=== PATIENT | female | born 1990 | race Two or more races ===

== ENCOUNTER 2018-10-22 17:12 | Emergency (ER) | payer SELFPAY ==
[2018-10-22] MEDS ORDERED: Ondansetron 4 MG Tab.DIS PO ONE (18:29)
[2018-10-22] MEDS ORDERED: Loperamide 2 MG Cap PO ONE (18:30)
--- NOTE | 2018-10-22 18:35 | EDM.PDOC ---
ED HPI GENERAL MEDICAL PROBLEM - General Chief Complaint: Abdominal Pain Stated Complaint: ABD PAIN DIARREHA NAUSEA Time Seen by Provider: 10/22/18 18:23 Source of Information: Reports: Patient, Family, RN Notes Reviewed History Limitations: Reports: No Limitations - History of Present Illness INITIAL COMMENTS - FREE TEXT/NARRATIVE: 28-year-old female presents emergency department day complaint of diarrhea and nausea, she states it started early this morning around 2 AM she's had 6 loose bowel movements today denies any fevers no shortness of breath chest pain no new medications no sick contacts no suspicious food Upper Abdomen Pain Score (Numeric/FACES): 8 - Related Data Allergies Allergy/AdvReac Type Severity Reaction Status Date / Time cinnamon Allergy Rash Verified 10/22/18 17:36 shrimp Allergy Rash Verified 10/22/18 17:36 lobster Allergy Rash Uncoded 10/22/18 17:36 Home Meds: Home Meds NK [No Known Home Meds] 10/22/18 [History] Past Medical History - Past Health History Medical/Surgical History: Denies Medical/Surgical History - Past Surgical History GI Surgical History: Reports: Appendectomy Social & Family History - Tobacco Use Smoking Status *Q: Never Smoker - Caffeine Use Caffeine Use: Reports: Coffee - Recreational Drug Use Recreational Drug Use: Yes Recreational Drug Type: Reports: Marijuana/Hashish ED ROS GENERAL - Review of Systems Review Of Systems: See Below Constitutional: Denies: Fever, Chills Respiratory: Reports: No Symptoms Cardiovascular: Reports: No Symptoms GI/Abdominal: Reports: Abdominal Pain, Diarrhea, Nausea, Vomiting : Reports: No Symptoms ED EXAM, GI/ABD - Physical Exam Exam: See Below Exam Limited By: No Limitations General Appearance: Alert, WD/WN, No Apparent Distress Eyes: Bilateral: Normal Appearance Head: Atraumatic, Normocephalic Neck: Normal Inspection, Supple, Non-Tender, Full Range of Motion Respiratory/Chest: No Respiratory Distress, Lungs Clear, Normal Breath Sounds, No Accessory Muscle Use Cardiovascular: Regular Rate, Rhythm, No Murmur GI/Abdominal Exam: Soft, No Distention, No Abnormal Bruit, No Mass, Tender ( mild tenderness epigastric region) Course - Vital Signs Last Recorded V/S: Last Vital Signs Temp 96.4 F 10/22/18 17:32 Pulse 101 H 10/22/18 17:32 Resp 16 10/22/18 17:32 BP 120/80 10/22/18 17:32 Pulse Ox 98 10/22/18 17:32 - Orders/Labs/Meds Labs: Laboratory Tests 10/22/18 10/22/18 10/22/18 Range/Units 18:39 18:49 19:25 WBC 11.7 H (4.5-11.0) K/uL RBC 5.27 (3.30-5.50) M/uL Hgb 13.2 (12.0-15.0) g/dL Hct 41.0 (36.0-48.0) % MCV 78 L (80-98) fL MCH 25 L (27-31) pg MCHC 32 (32-36) % Plt Count 275 (150-400) K/uL Neut % (Auto) 92 H (36-66) % Lymph % (Auto) 4 L (24-44) % Coal % (Auto) 3 (2-6) % Eos % (Auto) 0 L (2-4) % Baso % (Auto) 0 (0-1) % Sodium 137 L (140-148) mmol/L Potassium 4.7 (3.6-5.2) mmol/L Chloride 103 (100-108) mmol/L Carbon Dioxide 26 (21-32) mmol/L Anion Gap 12.7 (5.0-14.0) mmol/L BUN 14 (7-18) mg/dL Creatinine 0.7 (0.6-1.0) mg/dL Est Cr Clr Drug Dosing 106.70 mL/min Estimated GFR (MDRD) > 60 (>60) Glucose 89 (74-106) mg/dL Calcium 8.7 (8.5-10.1) mg/dL Total Bilirubin 0.8 (0.2-1.0) mg/dL AST 17 (15-37) U/L ALT 21 (12-78) U/L Alkaline Phosphatase 65 (46-116) U/L Total Protein 7.5 (6.4-8.2) g/dL Albumin 3.6 (3.4-5.0) g/dL Globulin 3.9 H (2.3-3.5) g/dL Albumin/Globulin Ratio 0.9 L (1.2-2.2) Urine Color Yellow Urine Appearance Clear Urine pH 6.0 (4.5-8.0) Ur Specific [place] 1.015 (1.008-1.030) Urine Protein Negative (NEGATIVE) mg/dL Urine Glucose (UA) Normal (NEGATIVE) mg/dL Urine Ketones 50 H (NEGATIVE) mg/dL Urine Occult Blood Trace (NEGATIVE) Urine Nitrite Negative (NEGATIVE) Urine Bilirubin Negative (NEGATIVE) Urine Urobilinogen Normal (NORMAL) mg/dL Ur Leukocyte Esterase Negative (NEGATIVE) Urine RBC 5-10 H (0-5) Urine WBC 0-5 (0-5) Ur Epithelial Cells Moderate Amorphous Sediment Not seen Urine Bacteria Many Urine Mucus Not seen Meds: Medications Discontinued Medications Generic Name Dose Route Start Last Admin Trade Name Freq PRN Reason Stop Dose Admin Loperamide HCl 2 mg 10/22/18 18:30 10/22/18 18:37 Imodium PO 10/22/18 18:31 2 mg ONETIME ONE Administration Ondansetron HCl 4 mg 10/22/18 18:29 10/22/18 18:37 Zofran Odt PO 10/22/18 18:30 4 mg ONETIME ONE Administration Departure - Departure Time of Disposition: 20:04 Disposition: Home, Self-Care 01 Condition: Fair Clinical Impression: Gastroenteritis - Discharge Information Referrals: PCP,None [Primary Care Provider] - Forms: ED Department Discharge Additional Instructions: Recommend push fluids prescription written for Zofran ODT 4 mg 1 tab by mouth 3 times a day when necessary: #10 use [id number] Imodium as needed for loose stools, follow-up with primary care 2 to 3 days if no improvement. - Assessment/Plan Plan: Assessment Acuity = acute Site and laterality = gastroenteritis Etiology = probable viral cause Manifestations = nausea, watery diarrhea Location of injury = Home Lab values = CBC, CMP, urinalysis unremarkable other than dehydration Plan Recommend push fluids prescription written for Zofran ODT 4 mg 1 tab by mouth 3 times a day when necessary: #10 use [id number] Imodium as needed for loose stools, follow-up with primary care 2 to 3 days if no improvement. This note was dictated using [employer] recognition software please call with any questions on syntax or grammar.
== END 2018-10-22 20:35 | disposition home or self-care (01) ==
LOC: JP.ED 17:12
DX: K52.9 Noninfective gastroenteritis and colitis, unspecified (principal); Z91.018 Allergy to other foods; Z91.013 Allergy to seafood
CPT/HCPCS: 36415; 80053; 81001; 85025; 99284; A9270

== ENCOUNTER 2019-05-02 06:30 | Emergency (ER) | payer BC, OTHER ==
--- NOTE | 2019-05-02 07:50 | EDM.PDOC ---
ED HPI GENERAL MEDICAL PROBLEM - General Chief Complaint: ENT Problem Stated Complaint: SINUS INFECTION??? Time Seen by Provider: 05/02/19 07:48 Source of Information: Reports: Patient History Limitations: Reports: No Limitations - History of Present Illness INITIAL COMMENTS - FREE TEXT/NARRATIVE: pt arrived stating that she has been having congestion in the sinus area. She has facial pain on the left and pain in the left ear. She has been using mucinex and decongestants. She has been treated as a allergy. Onset: Gradual Duration: Day(s): Location: Reports: Face Associated Symptoms: Reports: No Other Symptoms left face Pain Score (Numeric/FACES): 8 - Related Data Allergies Allergy/AdvReac Type Severity Reaction Status Date / Time cinnamon Allergy Rash Verified 05/02/19 07:01 shrimp Allergy Rash Verified 05/02/19 07:01 lobster Allergy Rash Uncoded 05/02/19 07:01 Home Meds: Home Meds Loratadine [Claritin] 10 mg PO DAILY 05/02/19 [History] Phenylephrine/Dm/Acetaminop/Gg [Mucinex Fast-Max Cold-Flu Liq] 180 ml PO Q6H PRN 05/02/19 [History] Past Medical History - Past Health History Medical/Surgical History: Denies Medical/Surgical History - Past Surgical History GI Surgical History: Reports: Appendectomy Social & Family History - Tobacco Use Smoking Status *Q: Never Smoker - Caffeine Use Caffeine Use: Reports: Coffee - Recreational Drug Use Recreational Drug Use: No ED ROS ENT - Review of Systems Review Of Systems: See Below Constitutional: Reports: No Symptoms HEENT: Reports: Ear Pain, Sinus Problem Respiratory: Reports: No Symptoms Cardiovascular: Reports: No Symptoms Endocrine: Reports: No Symptoms GI/Abdominal: Reports: No Symptoms : Reports: No Symptoms Musculoskeletal: Reports: No Symptoms Skin: Reports: No Symptoms Neurological: Reports: No Symptoms ED EXAM, ENT - Physical Exam Exam: See Below Text/Narrative:: pt is having facial pain on the left and pain in the left ear. This has been going on for about 3 weeks. She was seen in walk in and she was given muconex for her congestion. Exam Limited By: No Limitations General Appearance: Alert, Anxious, Moderate Distress Ears: Other (pt does have a small amount of fluid behind the left drum. ) Nose: Normal Inspection Mouth/Throat: Normal Inspection Head: Other (pt has sig tenderness over her left maxillary sinus area. ) Neck: Normal Inspection Respiratory/Chest: No Respiratory Distress Cardiovascular: Regular Rate, Rhythm GI/Abdominal: Soft, Non-Tender (Female) Exam: Deferred Rectal (Female) Exam: Deferred Back: Normal Inspection Extremities: Normal Inspection Neurological: Alert, Oriented, Normal Cognition Course - Vital Signs Last Recorded V/S: Last Vital Signs Temp 36.7 C 05/02/19 06:58 Pulse 79 05/02/19 06:58 Resp 18 05/02/19 06:58 BP 123/85 05/02/19 06:58 Pulse Ox 98 05/02/19 06:58 - Orders/Labs/Meds Orders: Active Orders 24 hr Category Date Time Status Sinus Less 3V [CR] Stat Exams 05/02/19 07:46 Taken Labs: Laboratory Tests 05/02/19 Range/Units 07:46 WBC 13.0 H (4.5-11.0) K/uL RBC 5.00 (3.30-5.50) M/uL Hgb 13.0 (12.0-15.0) g/dL Hct 39.5 (36.0-48.0) % MCV 79 L (80-98) fL MCH 26 L (27-31) pg MCHC 33 (32-36) % Plt Count 295 (150-400) K/uL Neut % (Auto) 72 H (36-66) % Lymph % (Auto) 18 L (24-44) % [place] % (Auto) 7 H (2-6) % Eos % (Auto) 3 (2-4) % Baso % (Auto) 0 (0-1) % Meds: Medications Discontinued Medications Generic Name Dose Route Start Last Admin Trade Name Freq PRN Reason Stop Dose Admin Ceftriaxone Sodium 1 gm/ 0 gm 05/02/19 08:14 Lidocaine HCl 2.1 ml IM 05/02/19 08:15 ONETIME ONE - Re-Assessments/Exams Free Text/Narrative Re-Assessment/Exam: 05/02/19 08:21 pt had a esquivel view which shows congestion in the left maxillary sinus. Her wbc is 13,000. She was given rocephen 1 gm im. Departure - Departure Time of Disposition: 08:15 Disposition: Home, Self-Care 01 Condition: Fair Clinical Impression: Left maxillary sinusitis - Discharge Information Referrals: PCP,None [Primary Care Provider] - Forms: ED Department Discharge Care Plan Goals: cool mist humidfier, push fluids, tylenol and motrin for [pain. augmentin 875 bid for 10 days. Pt paula slade of yogurt and probiotic while on the augmentin. Appt with regular Dr in 10 day. - My Orders Last 24 Hours: My Active Orders 05/02/19 07:46 Sinus Less 3V [CR] Stat - Assessment/Plan Last 24 Hours: My Active Orders 05/02/19 07:46 Sinus Less 3V [CR] Stat
[2019-05-02] MEDS ORDERED: cefTRIAXone 1 GM, Lidocaine 1% 2.1 ML IM ONE ×2 (08:14)
--- NOTE | 2019-05-02 08:36 | CRLCR ---
Indication: Sinus congestion Technique: Sinus Melo 1 views Comparison: None Findings/Impression: There is near complete opacification of the left maxillary sinus. Remainder of the paranasal sinuses appear clear. Orbits and osseous structures are unremarkable. No other abnormality evident. Dictated by Jluis Salinas MD @ 05/02/2019 8:36:06 AM Dictated by: Jluis Salinas MD @ 05/02/2019 08:36:15 (Electronically Signed)
== END 2019-05-02 08:35 | disposition home or self-care (01) ==
LOC: JP.ED 06:30
DX: J32.0 Chronic maxillary sinusitis (principal); Z91.013 Allergy to seafood; Z91.018 Allergy to other foods
CPT/HCPCS: 36415; 70210; 85025; 96372; 99283; J0696; J2001